=== PATIENT | female | born 1985 | race African-American/Black ===

== ENCOUNTER 2017-10-07 10:03 | Emergency (ER) | payer OTHER ==
[~2017-10-07] VITALS: Ht 157.5 cm; Wt 120.7 kg
[~2017-10-07 10:03] MED LIST: CIPRO250 MG PO; PHENTERMINE H37.5 M3 PO; TAP5 PO; TEN25 PO
[2017-10-07 10:11] VITALS: Ht 157.5 cm; Wt 120.7 kg
[2017-10-07 12:43] LABS: microscopic required? YES; urine erythrocyte 2+ (NEGATIVE)
[2017-10-07 13:23] VITALS: BP 152/91
== END 2017-10-07 13:23 | disposition home or self-care (01) ==
LOC: ED 10:03
PROVIDERS: Emergency Medicine
DX: R60.0 Localized edema (principal); E66.9 Obesity, unspecified; I10 Essential (primary) hypertension
CPT/HCPCS: Q0092